=== PATIENT | female | born 1945 | race Caucasian/White ===

== ENCOUNTER → 2016-08-01 | Outpatient (CLI) | payer OTHER ==
[2012-07-02 03:59] VITALS: BP 129/60
== END ==
LOC: RAD 09:31
PROVIDERS: ATTEND Specialist
DX: Z12.31 Encounter for screening mammogram for malignant neoplasm of breast (principal)
CPT/HCPCS: 77067

== ENCOUNTER 2018-03-14 10:43 | Observation (INO) ==
[2018-03-14 12:06] LABS: BILIRUBIN,URINE NEGATIVE (NEGATIVE); BLOOD/HEMOGLOBIN,URINE NEGATIVE (NEGATIVE); GLUCOSE, URINE NEGATIVE (NEGATIVE); KETONES,URINE NEGATIVE (NEGATIVE); LEUKOCYTE ESTERASE ,URINE NEGATIVE (NEGATIVE); NITRITES,URINE NEGATIVE (NEGATIVE); PH,URINE 6.5 (5.0 - 8.0); PROTEIN,URINE NEGATIVE (NEGATIVE); UROBILINOGEN,URINE NORMAL (NORMAL)
[2018-03-14 12:07] LABS: APPEARANCE,URINE CLEAR (CLEAR); COLOR,URINE YELLOW (YELLOW)
[2018-03-14 12:08] LABS: BASOPHILS # (AUTO) 0.1 X10^3/uL (0.0-0.1); BASOPHILS % (AUTO) 0.7 % (0.2-1.0); EOSINOPHILS # (AUTO) 0.2 x10^3/uL (0.0-0.2); EOSINOPHILS % (AUTO) 2.3 % (0.9-2.9); HEMOGLOBIN 14.9 g/dL (12.0-16.0); LYMPHOCYTES # (AUTO) 1.6 X10^3/uL (1.3-2.9); LYMPHOCYTES % (AUTO) 21.8 % (21.0-51.0); MEAN CORPUSCULAR HEMOGLOBIN 29.2 pg (27.0-34.0); MEAN CORPUSCULAR HGB CONC 34.6 g/dL (33.0-35.0); MEAN CORPUSCULAR VOLUME 84.6 fL (80.0-100.0); MEAN PLATELET VOLUME 9.3 fL (7.4-11.0); MONOCYTES # (AUTO) 0.7 x10^3/uL (0.3-0.8); MONOCYTES % (AUTO) 9.1 % (0.0-13.0); NEUTROPHILS # (AUTO) 4.9 x10^3/uL (2.2-4.8); NEUTROPHILS % (AUTO) 66.1 % (42.0-75.0); PLATELET COUNT 196 X10^3/uL (150.0-450.0); RED BLOOD COUNT 5.09 X10^6/uL (3.5-5.4); RED CELL DISTRIBUTION WIDTH 15.2 % (11.6-16.5); WHITE BLOOD COUNT 7.5 X10^3/uL (3.6-10.0)
[2018-03-14 12:19] LABS: ALANINE AMINOTRANSFERASE 29 Units/L (12-78); ALBUMIN 4.1 g/dL (3.4-5.0); ALKALINE PHOSPHATASE 80 Units/L (46-116); ASPARTATE AMINO TRANSFERASE 19 Units/L (15-37); BLOOD UREA NITROGEN 23 mg/dL (7-18); CARBON DIOXIDE 27.5 mmol/L (21-32); CHLORIDE 105 mmol/L (98-107); CREATININE 1.15 mg/dL (0.55-1.02); SODIUM 141 mmol/L (136-145); TOTAL PROTEIN 7.9 g/dL (6.4-8.2); eGFR NON BLACK RACES 49 (>60)
[2018-03-14] MEDS ORDERED: K-DUR TAB 20 MEQ PO PRN (12:21)
[2018-03-14] MEDS ORDERED: K-RIDER 10 MEQ/NS 100 ML 10 MEQ/100 ML BAG IV PRN (12:21)
[2018-03-14] MEDS ORDERED: POTASSIUM CHL 40 MEQ/NS 0.45% 500 ML IV PRN (12:21)
[2018-03-14] MEDS ORDERED: KLOR-CON PO PRN (12:21)
[2018-03-14] MEDS ORDERED: MICRO K EXTEN CAP 10 MEQ PO PRN (12:21)
[2018-03-14] MEDS ORDERED: POTASSIUM CHL 60 MEQ/NS 0.45% 500 ML IV PRN (12:21)
[2018-03-14] MEDS ORDERED: POTASSIUM CHLORIDE LIQ 20 MEQ UDC PO PRN (12:21)
[2018-03-14 12:32] LABS: CKMB % 0.7 % (<4); CREATINE KINASE 135 Units/L (26-192); TROPONIN I < 0.02 ng/mL (0-1.5)
[2018-03-14 12:33] LABS: B-TYPE NATRIURETIC PEPTIDE 8.1 pg/mL (0-79)
[2018-03-14] MEDS ORDERED: NS 250 ML IV 250 ML IV ONE (13:40)
[2018-03-14] MEDS: MAGNESIUM SULFATE 1 GRAM/100 mL PREMIX 1 GM/100 ML BAG IV PRN ×2 (13:52→16:11)
[2018-03-14] MEDS: LOVENOX INJ 30 MG SYR SC SCH (13:52)
[2018-03-14 14:31] VITALS: BMI 28.3
[2018-03-14] MEDS ORDERED: NS 100 ML IV 100 ML IV ONE (15:28)
[2018-03-14] MEDS ORDERED: MORPHINE SULFATE INJ 2 MG INJ IVP PRN (16:04)
[2018-03-14] MEDS ORDERED: MORPHINE SULFATE INJ 2 MG INJ ONE (16:34)
[2018-03-14] MEDS ORDERED: BENADRYL CAP 50 MG PO ONE (16:46)
[2018-03-14] MEDS ORDERED: BENADRYL CAP/TAB 25 MG PO ONE (16:48)
--- NOTE | 2018-03-14 17:13 | RAD ---
Exam: Portable chest History: 73-year-old female with shortness of breath Comparison: Previous chest radiograph from 07/02/2012 Findings: Heart size and pulmonary vasculature are normal. Moderate hyperinflation is present with flattening hemidiaphragms, consistent with COPD. Lungs are clear with no acute infiltrate or significant effusion on either side. Visualized aspect of the bony thorax is unremarkable as well. Impression: COPD. However no acute superimposed abnormality is seen on this exam. Reported By:
[2018-03-14 17:37] LABS: CKMB % 1.1 % (<4); CREATINE KINASE 122 Units/L (26-192); CREATINE KINASE MB 1.3 ng/mL (0-4.0); TROPONIN I < 0.02 ng/mL (0-1.5)
[2018-03-14] MEDS ORDERED: TYLENOL 325 MG TAB PO PRN (17:48)
--- NOTE | 2018-03-14 23:16 | CT ---
CT chest with contrast Indication: Dyspnea Technique: Helical images through the chest after IV contrast. Coronal and sagittal reformats provided. Findings: Limited images through the upper abdomen shows no acute abnormality. Review of bone windows shows no osseous lesion Chest: Aortic arch branch vessels are patent with few calcifications. Heart size is normal. Scattered mediastinal lymph nodes noted. There is no pneumothorax, effusion or consolidation. Impression: No acute chest process. Few vascular calcifications without other abnormality seen Reported By:
[2018-03-15 00:02] LABS: CREATINE KINASE 105 Units/L (26-192); TROPONIN I < 0.02 ng/mL (0-1.5)
[2018-03-15 05:58] LABS: BASOPHILS # (AUTO) 0.1 X10^3/uL (0.0-0.1); BASOPHILS % (AUTO) 0.7 % (0.2-1.0); EOSINOPHILS # (AUTO) 0.2 x10^3/uL (0.0-0.2); EOSINOPHILS % (AUTO) 3.2 % (0.9-2.9); HEMATOCRIT 40.9 % (36.0-47.0); HEMOGLOBIN 14.1 g/dL (12.0-16.0); LYMPHOCYTES # (AUTO) 1.9 X10^3/uL (1.3-2.9); LYMPHOCYTES % (AUTO) 27.3 % (21.0-51.0); MEAN CORPUSCULAR HEMOGLOBIN 29.1 pg (27.0-34.0); MEAN CORPUSCULAR HGB CONC 34.5 g/dL (33.0-35.0); MEAN CORPUSCULAR VOLUME 84.2 fL (80.0-100.0); MEAN PLATELET VOLUME 9.3 fL (7.4-11.0); MONOCYTES # (AUTO) 0.6 x10^3/uL (0.3-0.8); MONOCYTES % (AUTO) 8.7 % (0.0-13.0); NEUTROPHILS # (AUTO) 4.3 x10^3/uL (2.2-4.8); NEUTROPHILS % (AUTO) 60.1 % (42.0-75.0); PLATELET COUNT 191 X10^3/uL (150.0-450.0); RED BLOOD COUNT 4.85 X10^6/uL (3.5-5.4); RED CELL DISTRIBUTION WIDTH 15.6 % (11.6-16.5); WHITE BLOOD COUNT 7.1 X10^3/uL (3.6-10.0)
[2018-03-15] MEDS: LOVENOX INJ 30 MG SYR SC SCH ×2 (05:58→09:14)
[2018-03-15 06:16] LABS: ALANINE AMINOTRANSFERASE 24 Units/L (12-78); ALBUMIN 3.7 g/dL (3.4-5.0); ALKALINE PHOSPHATASE 71 Units/L (46-116); ASPARTATE AMINO TRANSFERASE 18 Units/L (15-37); BLOOD UREA NITROGEN 21 mg/dL (7-18); CALCIUM 8.2 mg/dL (8.5-10.1); CARBON DIOXIDE 25.5 mmol/L (21-32); CHLORIDE 104 mmol/L (98-107); CHOL/HDL RATIO 4.3 (0.0-5.0); CHOLESTEROL 165 mg/dL (0-200); CREATININE 1.21 mg/dL (0.55-1.02); HDL CHOLESTEROL 38 mg/dL (40-60); MAGNESIUM 2.1 mg/dL (1.7-2.9); SODIUM 139 mmol/L (136-145); TOTAL PROTEIN 7.2 g/dL (6.4-8.2); TRIGLYCERIDES 206 mg/dL (0-150); eGFR NON BLACK RACES 47 (>60)
[2018-03-15 08:37] VITALS: BP 112/64
--- NOTE | 2018-03-25 19:46 | DR.CARTERS ---
Short Stay Summary - Admission Date Date of Admission: 03/14/18 - Discharge Date Discharge Date: 03/15/18 - Admission Diagnoses (1) Shortness of breath Status: Acute - Hospital Course Hospital Course: WAS SEEN IN THE OFFICE FOR COMPLAINTS OF SHORTNESS OF BREATH. SHE REPORTED THAT THE SYMPTOMS STARTED THREE DAYS PRIOR TO BEING SEEN AND HAD PROGRESSIVELY GOTTEN WORSE. SHE REPORTS THAT SHORTNESS OF BREATH IS WORSE UPON CARRYING ON CONVERSATIONS, ON EXERTION, OR BY LYING FLAT. SHE WAS ADMITTED FOR FURTHER EVALUATION AND TREATMENT. H&P COMPLETED PRIOR TO ADMISSION. ON ADMISSION, LABS WERE OBTAINED. ABNORMAL LAB VALUES INCLUDED THE FOLLOWING: BUN 23, CREATININE 1.15. CARDIAC ENZYMES WITHIN NORMAL LIMITS. CHEST XRAY REVEALED: COPD, HOWEVER, NO ACUTE SUPERIMPOSED ABNORMALITY SEEN. A CHEST CT WITH CONTRAST WAS OBTAINED AND REVEALED: NO ACUTE CHEST PROCESS. FEW VASCULAR CALCIFICATIONS WITHOUT OTHER ABNORMALITY SEEN. EKG REVEALED SINUS RHYTHM WITH HR 88. AN ECHO WAS OBTAINED AND REVEALED AN EJECTION FRACTION OF 50%, MITRAL VALVE PROLAPSE, E/A REVERSAL. SHE WAS STARTED ON SUPPLEMENTAL OXYGEN. WE PLANNED TO FOLLOW UP WITH SERIAL CARDIAC ENZYMES AND EKGS AND CONTINUE TO MONITOR PATIENT. ON THE MORNING FOLLOWING ADMISSION, PATIENT REPORTS THAT SHORTNESS OF BREATH HAS IMPROVED. SHE DENIES CHEST PAIN. HER VITALS THIS MORNING ARE 97.8-98-20-97%-112/64. LABS WERE OBTAINED. ABNORMAL LAB VALUES INCLUDE THE FOLLOWING: BUN 21, CREATININE 1.21, GLUCOSE 108, CALCIUM 8.2, TRIGLYCERIDES 206, HDL 38. CARDIAC ENZYMES WITHIN NORMAL LIMITS. NO CHANGES NOTED TO EKGS. WE PLANNED FOR DISCHARGE. WE PLAN TO OBTAIN AN OUTPATIENT CARDIOLITE STRESS TEST. WE INSTRUCTED HER TO CONTINUE HER CURRENT MEDICATIONS AND TO FOLLOW UP WITH ME IN THE OFFICE ON 03/22/2018. SHE VERBALIZED UNDERSTANDING AND WAS DISCHARGED HOME WITH SPOUSE IN STABLE CONDITION. - Discharge Medications Discharge Medications: Home Medication List aspirin [Ecotrin] 325 mg PO DAILY 03/14/18 [History] estradiol [Vagifem] 10 mcg VAGINAL 2XW 03/14/18 [History] Prescriptions: - Discharge Plan Disposition: HOME, SELF-CARE Condition: Stable - Follow up/Referrals Follow up/Referrals: LIV LAGOS [Primary Care Provider] - 1 WEEK (pt does note see ) Familia Morley [STAFF PHYSICIAN] - 03/22/18 2:00 pm - Instructions Instructions: Shortness of Breath, Adult, [id number], Nonspecific Chest Pain, [id number] Additional Instructions: DIET TOLERATED. ACTIVITY TOLERATED. Forms: Patient Portal
== END 2018-03-15 11:14 | disposition home or self-care (01) ==
LOC: MED/SURG
PROVIDERS: ADMIT Internal Medicine; ATTEND Internal Medicine
DX: R06.02 Shortness of breath; I10 Essential (primary) hypertension; R07.89 Other chest pain; I20.8 Other forms of angina pectoris; R94.31 Abnormal electrocardiogram [ECG] [EKG]; D51.9 Vitamin B12 deficiency anemia, unspecified; Z79.01 Long term (current) use of anticoagulants; J44.9 Chronic obstructive pulmonary disease, unspecified; E78.2 Mixed hyperlipidemia; E55.9 Vitamin D deficiency, unspecified
CPT/HCPCS: 36415; 71010; 71045; 71260; 80053; 80061; 81003; 82550; 82553; 83735; 83880; 84484; 85025; 85378; 85610; 85730; 93005; 93306; 94760; 96367; 96372; A4222; G0378; J1650; J2270; J3475; J7050

== ENCOUNTER 2018-10-24 10:47 | Observation (INO) ==
[2018-10-24] MEDS ORDERED: ZOFRAN INJ 4 MG VIAL IVP PRN (12:17)
[2018-10-24 12:41] LABS: BASOPHILS # (AUTO) 0.2 X10^3/uL (0.0-0.1); BASOPHILS % (AUTO) 2.7 % (0.2-1.0); EOSINOPHILS # (AUTO) 0.1 x10^3/uL (0.0-0.2); LYMPHOCYTES # (AUTO) 0.9 X10^3/uL (1.3-2.9); LYMPHOCYTES % (AUTO) 14.9 % (21.0-51.0); MEAN CORPUSCULAR HEMOGLOBIN 29.9 pg (27.0-34.0); MEAN CORPUSCULAR HGB CONC 34.9 g/dL (33.0-35.0); MEAN CORPUSCULAR VOLUME 85.5 fL (80.0-100.0); MEAN PLATELET VOLUME 8.7 fL (7.4-11.0); MONOCYTES # (AUTO) 0.4 x10^3/uL (0.3-0.8); MONOCYTES % (AUTO) 7.1 % (0.0-13.0); NEUTROPHILS # (AUTO) 4.4 x10^3/uL (2.2-4.8); NEUTROPHILS % (AUTO) 73.3 % (42.0-75.0); PLATELET COUNT 149 X10^3/uL (150.0-450.0); RED BLOOD COUNT 4.69 X10^6/uL (3.5-5.4); RED CELL DISTRIBUTION WIDTH 14.6 % (11.6-16.5)
[2018-10-24 12:51] LABS: ALANINE AMINOTRANSFERASE 30 Units/L (12-78); ALKALINE PHOSPHATASE 83 Units/L (46-116); ASPARTATE AMINO TRANSFERASE 26 Units/L (15-37); BLOOD UREA NITROGEN 17 mg/dL (7-18); CALCIUM 8.9 mg/dL (8.5-10.1); CARBON DIOXIDE 26.5 mmol/L (21-32); CHLORIDE 107 mmol/L (98-107); CREATININE 1.27 mg/dL (0.55-1.02); SODIUM 144 mmol/L (136-145); TOTAL PROTEIN 7.2 g/dL (6.4-8.2); eGFR NON BLACK RACES 44 (>60)
[2018-10-24] MEDS: NS 1000 ML 1,000 ML with MVI INJ (ADULT) 1 ML IV SCH ×2 (13:57)
[2018-10-24] MEDS: FLAGYL IV PREMIX 500 MG BAG 500 MG/100 ML BAG IV SCH ×3 (13:58→22:00)
[2018-10-24] MEDS ORDERED: NS 100 ML IV 100 ML ONE (14:41)
--- NOTE | 2018-10-24 15:22 | CT ---
HISTORY: Left-sided back pain for 4 days Study: CT abdomen and pelvis with contrast Comparison: None Technique: Multiple axial images of the abdomen and pelvis were obtained with IV contrast. Oral contrast was administered. Dose reduction techniques including Automated Exposure Control (AEC) and adjustment of mA and kV were utilized. Findings: The visualized portions of the lung bases are clear. The liver, spleen, pancreas, and adrenal glands are unremarkable. Gallbladder is removed. No renal calculi or obstructive uropathy. No free intraperitoneal air. No evidence of intestinal obstruction or inflammation. Appendix is removed. No free fluid or abscess identified. Oral contrast reaches the rectum. There are a few scattered sigmoid diverticula present without acute inflammation. The soft tissues and osseous structures are unremarkable. The vascular structures are within normal limits for age. No pathologically enlarged lymph nodes are identified. Uterus is removed. Urinary bladder is not well distended but otherwise unremarkable. IMPRESSION: 1. No acute abnormality identified. 2. Postsurgical changes as described. 3. Sigmoid diverticulosis without acute inflammation. Reported By:
[2018-10-24 15:54] VITALS: BMI 26.7
[2018-10-24 16:49] LABS: BILIRUBIN,URINE NEGATIVE (NEGATIVE); BLOOD/HEMOGLOBIN,URINE NEGATIVE (NEGATIVE); GLUCOSE, URINE NEGATIVE (NEGATIVE); KETONES,URINE 1+ (NEGATIVE); LEUKOCYTE ESTERASE ,URINE NEGATIVE (NEGATIVE); NITRITES,URINE NEGATIVE (NEGATIVE); PROTEIN,URINE NEGATIVE (NEGATIVE); UROBILINOGEN,URINE NORMAL (NORMAL)
[2018-10-24 16:50] LABS: APPEARANCE,URINE CLEAR (CLEAR); COLOR,URINE PALE YELLOW (YELLOW)
[2018-10-24 17:05] LABS: STOOL FOR WBC NEGATIVE (NEGATIVE)
[2018-10-24 17:22] LABS: CRYPTOSPORIDIUM PARVUM ANTIGEN NEGATIVE (NEGATIVE); GIARDIA LAMBLIA ANTIGEN NEGATIVE (NEGATIVE)
[2018-10-24] MEDS ORDERED: TYLENOL 325 MG TAB PO PRN (20:32)
[2018-10-24] MEDS ORDERED: RESTORIL CAP 15 MG PO PRN (20:32)
[2018-10-24] MEDS ORDERED: K-DUR TAB 20 MEQ PO ONE (21:00)
[2018-10-25] MEDS: NS 1000 ML 1,000 ML with MVI INJ (ADULT) 1 ML IV SCH ×4 (00:15→09:32)
[2018-10-25] MEDS: FLAGYL IV PREMIX 500 MG BAG 500 MG/100 ML BAG IV SCH ×2 (02:30→09:26)
[2018-10-25 05:32] LABS: BASOPHILS % (AUTO) 0.7 % (0.2-1.0); EOSINOPHILS # (AUTO) 0.2 x10^3/uL (0.0-0.2); HEMATOCRIT 38.1 % (36.0-47.0); HEMOGLOBIN 13.3 g/dL (12.0-16.0); LYMPHOCYTES # (AUTO) 0.9 X10^3/uL (1.3-2.9); LYMPHOCYTES % (AUTO) 13.9 % (21.0-51.0); MEAN CORPUSCULAR HEMOGLOBIN 29.8 pg (27.0-34.0); MEAN CORPUSCULAR HGB CONC 34.9 g/dL (33.0-35.0); MEAN CORPUSCULAR VOLUME 85.5 fL (80.0-100.0); MEAN PLATELET VOLUME 9.3 fL (7.4-11.0); MONOCYTES # (AUTO) 0.6 x10^3/uL (0.3-0.8); MONOCYTES % (AUTO) 9.5 % (0.0-13.0); NEUTROPHILS # (AUTO) 4.8 x10^3/uL (2.2-4.8); NEUTROPHILS % (AUTO) 72.9 % (42.0-75.0); PLATELET COUNT 148 X10^3/uL (150.0-450.0); RED BLOOD COUNT 4.46 X10^6/uL (3.5-5.4); RED CELL DISTRIBUTION WIDTH 14.4 % (11.6-16.5); WHITE BLOOD COUNT 6.6 X10^3/uL (3.6-10.0)
[2018-10-25 05:47] LABS: ALANINE AMINOTRANSFERASE 25 Units/L (12-78); ALBUMIN 3.4 g/dL (3.4-5.0); ALKALINE PHOSPHATASE 72 Units/L (46-116); ASPARTATE AMINO TRANSFERASE 24 Units/L (15-37); BLOOD UREA NITROGEN 10 mg/dL (7-18); CALCIUM 8.2 mg/dL (8.5-10.1); CARBON DIOXIDE 24.8 mmol/L (21-32); CHLORIDE 110 mmol/L (98-107); CREATININE 1.11 mg/dL (0.55-1.02); MAGNESIUM 1.7 mg/dL (1.7-2.9); SODIUM 146 mmol/L (136-145); TOTAL PROTEIN 6.3 g/dL (6.4-8.2); eGFR NON BLACK RACES 52 (>60)
[2018-10-25] MEDS ORDERED: PHARMACY CONSULT - DOSE _____ XX SCH (09:00)
--- NOTE | 2018-10-25 09:22 | DR.UPDATE ---
H&P Update History and Physical Update: History and Physical reviewed and patient examined. Changes noted: Yes with the following: WAS SEEN IN THE OFFICE TODAY FOR COMPLAINTS OF ABDOMINAL PAIN. SHE WAS SEEN ON 10/22, WHERE SHE REPORTED RUQ PAIN. TODAY, SHE COMLAINS OF LLQ PAIN. SHE ALSO COMPLAINS OF DIARHHEA AND SEVERE WEAKNESS. SHE REPORTS A HISTORY OF DIVERTICULOSIS/DIVERTICULITIS. WE ADMITTED PATIENT FOR FURTHER EVALUATION AND TREATMENT OF ABDOMINAL PAIN, DIARRHEA, AND WEAKNESS. ON ADMISSION, WE WILL OBTAIN LABS AND AN ABDOMEN/PELVIS CT WITH CONTRAST. WE WILL START NORMAL SALINE AT 80ML/HR WITH MRI, ZOFRAN, AND FLAGYL 500MG IV Q6H. OTHERWISE, WE PLAN TO FOLLOW UP WITH AM LABS AND CONTINUE TO MONITOR. Prescription drug monitoring program results: PDMP reviewed and no concerns identified
[2018-10-25 16:34] VITALS: BP 149/75
== END 2018-10-25 11:50 | disposition home or self-care (01) ==
LOC: MED/SURG
PROVIDERS: ADMIT Internal Medicine; ATTEND Internal Medicine
DX: R10.11 Right upper quadrant pain; K52.9 Noninfective gastroenteritis and colitis, unspecified; R10.32 Left lower quadrant pain; K21.0 Gastro-esophageal reflux disease with esophagitis; R19.7 Diarrhea, unspecified; K57.30 Diverticulosis of large intestine without perforation or abscess without bleeding; I10 Essential (primary) hypertension
CPT/HCPCS: 36415; 74177; 80053; 81003; 82270; 83630; 83735; 85025; 87045; 87328; 87329; 87338; 87427; 87449; 87493; 87899; A4216; A4222; S0030; G0378; J7030; J7050

== ENCOUNTER 2018-11-09 13:32 | Inpatient (IN) ==
[2018-11-09 16:20] LABS: BASOPHILS # (AUTO) 0.1 X10^3/uL (0.0-0.1); BASOPHILS % (AUTO) 0.7 % (0.2-1.0); EOSINOPHILS % (AUTO) 0.4 % (0.9-2.9); HEMATOCRIT 36.9 % (36.0-47.0); HEMOGLOBIN 12.7 g/dL (12.0-16.0); LYMPHOCYTES # (AUTO) 1.1 X10^3/uL (1.3-2.9); LYMPHOCYTES % (AUTO) 11.8 % (21.0-51.0); MEAN CORPUSCULAR HEMOGLOBIN 28.9 pg (27.0-34.0); MEAN CORPUSCULAR HGB CONC 34.3 g/dL (33.0-35.0); MEAN CORPUSCULAR VOLUME 84.1 fL (80.0-100.0); MONOCYTES # (AUTO) 0.9 x10^3/uL (0.3-0.8); NEUTROPHILS # (AUTO) 7.5 x10^3/uL (2.2-4.8); NEUTROPHILS % (AUTO) 78.1 % (42.0-75.0); PLATELET COUNT 262 X10^3/uL (150.0-450.0); RED BLOOD COUNT 4.39 X10^6/uL (3.5-5.4); RED CELL DISTRIBUTION WIDTH 14.2 % (11.6-16.5); WHITE BLOOD COUNT 9.6 X10^3/uL (3.6-10.0)
[2018-11-09 16:33] LABS: ALANINE AMINOTRANSFERASE 24 Units/L (12-78); ALBUMIN 3.1 g/dL (3.4-5.0); ALKALINE PHOSPHATASE 76 Units/L (46-116); ASPARTATE AMINO TRANSFERASE 14 Units/L (15-37); BLOOD UREA NITROGEN 18 mg/dL (7-18); CALCIUM 8.6 mg/dL (8.5-10.1); CARBON DIOXIDE 24.1 mmol/L (21-32); CHLORIDE 106 mmol/L (98-107); COR CA(FOR HYPOALB) 9.3 mg/dL (8.5-10.1); CREATININE 1.11 mg/dL (0.55-1.02); SODIUM 140 mmol/L (136-145); TOTAL PROTEIN 7.2 g/dL (6.4-8.2); eGFR NON BLACK RACES 52 (>60)
[2018-11-09 16:37] LABS: APPEARANCE,URINE CLEAR (CLEAR); BILIRUBIN,URINE NEGATIVE (NEGATIVE); BLOOD/HEMOGLOBIN,URINE NEGATIVE (NEGATIVE); COLOR,URINE YELLOW (YELLOW); GLUCOSE, URINE NEGATIVE (NEGATIVE); KETONES,URINE NEGATIVE (NEGATIVE); LEUKOCYTE ESTERASE ,URINE NEGATIVE (NEGATIVE); NITRITES,URINE NEGATIVE (NEGATIVE); PROTEIN,URINE NEGATIVE (NEGATIVE); UROBILINOGEN,URINE NORMAL (NORMAL)
[2018-11-09] MEDS ORDERED: NS 1000 ML 1,000 ML ONE (16:50)
[2018-11-09] MEDS: NS 1000 ML 1,000 ML IV SCH (17:55)
[2018-11-09 18:48] VITALS: BMI 27.1
[2018-11-09] MEDS ORDERED: TORADOL 15 MG VIAL IVP PRN (19:20)
[2018-11-09] MEDS: CRESTOR TAB 10 MG PO SCH (20:30)
[2018-11-09] MEDS: TORADOL 15 MG VIAL IVP PRN (20:30)
[2018-11-09] MEDS: LOPRESSOR TAB 50 MG PO SCH (20:30)
[2018-11-09] MEDS: TRUSOPT PLUS (OPHTH) EACHEYE SCH (20:32)
[2018-11-10] MEDS: NS 1000 ML 1,000 ML IV SCH ×4 (00:33→17:29)
[2018-11-10] MEDS: TORADOL 15 MG VIAL IVP PRN (00:33)
[2018-11-10 06:14] LABS: BASOPHILS % (AUTO) 0.5 % (0.2-1.0); EOSINOPHILS # (AUTO) 0.1 x10^3/uL (0.0-0.2); EOSINOPHILS % (AUTO) 0.6 % (0.9-2.9); HEMATOCRIT 36.1 % (36.0-47.0); HEMOGLOBIN 12.4 g/dL (12.0-16.0); LYMPHOCYTES # (AUTO) 1.3 X10^3/uL (1.3-2.9); LYMPHOCYTES % (AUTO) 15.7 % (21.0-51.0); MEAN CORPUSCULAR HEMOGLOBIN 29.1 pg (27.0-34.0); MEAN CORPUSCULAR HGB CONC 34.5 g/dL (33.0-35.0); MEAN CORPUSCULAR VOLUME 84.4 fL (80.0-100.0); MEAN PLATELET VOLUME 8.1 fL (7.4-11.0); MONOCYTES # (AUTO) 0.5 x10^3/uL (0.3-0.8); MONOCYTES % (AUTO) 6.7 % (0.0-13.0); NEUTROPHILS # (AUTO) 6.3 x10^3/uL (2.2-4.8); NEUTROPHILS % (AUTO) 76.5 % (42.0-75.0); PLATELET COUNT 244 X10^3/uL (150.0-450.0); RED BLOOD COUNT 4.27 X10^6/uL (3.5-5.4); RED CELL DISTRIBUTION WIDTH 14.1 % (11.6-16.5); WHITE BLOOD COUNT 8.2 X10^3/uL (3.6-10.0)
[2018-11-10 06:20] LABS: ALANINE AMINOTRANSFERASE 22 Units/L (12-78); ALBUMIN 2.9 g/dL (3.4-5.0); ALKALINE PHOSPHATASE 73 Units/L (46-116); ASPARTATE AMINO TRANSFERASE 13 Units/L (15-37); BLOOD UREA NITROGEN 15 mg/dL (7-18); CALCIUM 8.4 mg/dL (8.5-10.1); CARBON DIOXIDE 23.5 mmol/L (21-32); CHLORIDE 108 mmol/L (98-107); COR CA(FOR HYPOALB) 9.3 mg/dL (8.5-10.1); CREATININE 1.01 mg/dL (0.55-1.02); SODIUM 141 mmol/L (136-145); eGFR NON BLACK RACES 57 (>60)
[2018-11-10] MEDS ORDERED: POTASSIUM CHL 60 MEQ/NS 0.45% 500 ML IV PRN (06:31)
[2018-11-10] MEDS ORDERED: MICRO K EXTEN CAP 10 MEQ PO PRN (06:31)
[2018-11-10] MEDS ORDERED: POTASSIUM CHLORIDE LIQ 20 MEQ UDC PO PRN (06:31)
[2018-11-10] MEDS ORDERED: K-RIDER 10 MEQ/NS 100 ML 10 MEQ/100 ML BAG IV PRN (06:31)
[2018-11-10] MEDS ORDERED: POTASSIUM CHL 40 MEQ/NS 0.45% 500 ML IV PRN (06:31)
[2018-11-10] MEDS ORDERED: K-DUR TAB 20 MEQ PO PRN (06:31)
[2018-11-10] MEDS ORDERED: MAGNESIUM SULFATE 1 GRAM/100 mL PREMIX 1 GM/100 ML BAG IV PRN (06:31)
[2018-11-10] MEDS ORDERED: KLOR-CON PO PRN (06:31)
[2018-11-10] MEDS: LOPRESSOR TAB 50 MG PO SCH ×2 (10:10→20:38)
[2018-11-10] MEDS: TRUSOPT PLUS (OPHTH) EACHEYE SCH ×2 (10:16→20:41)
[2018-11-10] MEDS: COLCRYS TAB 0.6 MG PO SCH ×2 (11:01→20:38)
[2018-11-10] MEDS: ULORIC PO SCH (11:01)
[2018-11-10] MEDS: TORADOL 15 MG VIAL IVP SCH ×3 (11:04→22:14)
[2018-11-10 11:34] LABS: STOOL FOR WBC NEGATIVE (NEGATIVE)
[2018-11-10 12:14] LABS: CRYPTOSPORIDIUM PARVUM ANTIGEN NEGATIVE (NEGATIVE); GIARDIA LAMBLIA ANTIGEN NEGATIVE (NEGATIVE)
--- NOTE | 2018-11-10 13:10 | VAS ---
HISTORY: 73-year-old female with left knee pain. Study: Venous Doppler left lower extremity. Comparison: None. TECHNIQUE: Multiple tolbert scale and color flow Doppler images of the deep venous system were obtained of the left lower extremity. FINDINGS: The deep venous system of the left lower extremity was evaluated from the level of the common femoral vein through the popliteal vein. Normal color flow and augmentation can be observed. In addition, normal compression is seen throughout the deep venous system. Robles cyst. IMPRESSION: 1. Negative for DVT. 2. Robles's cyst. Reported By:
[2018-11-10] MEDS: SYNTHROID 25 mcg TAB PO SCH (17:09)
[2018-11-10] MEDS: CRESTOR TAB 10 MG PO SCH (20:38)
[2018-11-10] MEDS: RESTORIL CAP 15 MG PO PRN (20:39)
[2018-11-11] MEDS: NS 1000 ML 1,000 ML IV SCH ×4 (02:56→17:16)
[2018-11-11] MEDS: TORADOL 15 MG VIAL IVP SCH ×3 (05:23→21:26)
[2018-11-11 06:01] LABS: BASOPHILS % (AUTO) 0.5 % (0.2-1.0); EOSINOPHILS # (AUTO) 0.1 x10^3/uL (0.0-0.2); EOSINOPHILS % (AUTO) 0.9 % (0.9-2.9); HEMATOCRIT 38.8 % (36.0-47.0); HEMOGLOBIN 13.3 g/dL (12.0-16.0); LYMPHOCYTES # (AUTO) 1.3 X10^3/uL (1.3-2.9); LYMPHOCYTES % (AUTO) 13.3 % (21.0-51.0); MEAN CORPUSCULAR HEMOGLOBIN 29.6 pg (27.0-34.0); MEAN CORPUSCULAR HGB CONC 34.4 g/dL (33.0-35.0); MEAN CORPUSCULAR VOLUME 85.9 fL (80.0-100.0); MEAN PLATELET VOLUME 8.9 fL (7.4-11.0); MONOCYTES # (AUTO) 0.6 x10^3/uL (0.3-0.8); MONOCYTES % (AUTO) 6.1 % (0.0-13.0); NEUTROPHILS # (AUTO) 7.6 x10^3/uL (2.2-4.8); NEUTROPHILS % (AUTO) 79.2 % (42.0-75.0); PLATELET COUNT 241 X10^3/uL (150.0-450.0); RED BLOOD COUNT 4.51 X10^6/uL (3.5-5.4); RED CELL DISTRIBUTION WIDTH 14.2 % (11.6-16.5); WHITE BLOOD COUNT 9.5 X10^3/uL (3.6-10.0)
[2018-11-11 06:25] LABS: ALANINE AMINOTRANSFERASE 22 Units/L (12-78); ALKALINE PHOSPHATASE 73 Units/L (46-116); ASPARTATE AMINO TRANSFERASE 19 Units/L (15-37); BLOOD UREA NITROGEN 14 mg/dL (7-18); CALCIUM 8.6 mg/dL (8.5-10.1); CARBON DIOXIDE 20.8 mmol/L (21-32); CHLORIDE 110 mmol/L (98-107); COR CA(FOR HYPOALB) 9.4 mg/dL (8.5-10.1); CREATININE 0.93 mg/dL (0.55-1.02); SODIUM 143 mmol/L (136-145); TOTAL PROTEIN 7.2 g/dL (6.4-8.2); eGFR NON BLACK RACES > 60 (>60)
[2018-11-11] MEDS: LOPRESSOR TAB 50 MG PO SCH ×2 (08:33→21:26)
[2018-11-11] MEDS: COLCRYS TAB 0.6 MG PO SCH ×2 (08:33→21:26)
[2018-11-11] MEDS: ULORIC PO SCH (08:34)
[2018-11-11] MEDS: TRUSOPT PLUS (OPHTH) EACHEYE SCH ×2 (08:35→21:27)
[2018-11-11] MEDS ORDERED: NORCO 5/325 MG TAB PO PRN (15:40)
[2018-11-11] MEDS: SYNTHROID 25 mcg TAB PO SCH (16:15)
[2018-11-11] MEDS: CRESTOR TAB 10 MG PO SCH (21:26)
[2018-11-11] MEDS: RESTORIL CAP 15 MG PO PRN (21:30)
--- NOTE | 2018-11-11 21:51 | PCM.PROG ---
Progress Note - Progress Note for Day of Date of Exam: 11/10/18 - Subjective Subjective: WAS ADMITTED FOR SEVERE DIARRHEA, DEHYDRATION, AND WEAKNESS. TODAY, SHE IS ALERT AND ORIENTED, SITTING UP IN BED ON MORNING ROUNDS. SHE REPORTS SEVERE PAIN TO THE LEFT KNEE TODAY. WE HAVE BEEN TREATING HER IN THE OFFICE FOR A GOUT FLARE UP. SHE ALSO CONTINUES WITH DIARRHEA AND GENERALIZED WEAKNESS. ON EXAMINATION, HEART IS REGULAR IN RATE AND RHYTHM. BILATERAL LUNGS ARE NOTED WITH DIMINISHED LUNG SOUNDS THROUGHOUT. ABDOMEN IS FLAT, SOFT, AND NON-TENDER WITH HYPERACTIVE BOWEL SOUNDS NOTED. LEFT KNEE IS NOTED WITH EDEMA. HER VITALS THIS MORNING ARE: 98.1-80-20-97%-177/81. LABS WERE OBTAINED. ABNORMAL LAB VALUES INCLUDE THE FOLLOWING: CHLORIDE 108, CALCIUM 8.4, URIC ACID 4.9, AST 13, CRP 82.0, ALBUMIN 2.9. STOOL STUDIES WERE OBTAINED THIS MORNING AND ARE PENDING. SHE IS CURRENTLY RECEIVING NORMAL SALINE AT 125ML/HR. TODAY, WE WILL STRT ULORIC 40MG PO DAILY AND COLCRYS 0.6MG PO BID. WE WILL OBTAIN A LLE VENOUS DOPPLER TODAY. OTHERWISE, WE PLAN TO FOLLOW UP WITH AM LABS AND CONTINUE TO MONITOR. - Past Medical Family Social History Past Med/Fam/Surg Hx: No changes since H&P Allergies: Allergies cefuroxime [From Ceftin] Allergy (Verified 11/09/18 16:10) levofloxacin [From Levaquin] Allergy (Verified 03/14/18 12:11) ofloxacin [From Floxin] Allergy (Verified 03/14/18 12:11) Penicillins Allergy (Verified 03/14/18 12:11) - Review of Systems ROS: No change since H&P - Vital Signs and I&O's Vital Signs: Temperature 98.6 F Pulse Rate [Right Brachial] 88 Respiratory Rate 20 Blood Pressure [Left Arm] 165/76 Blood Pressure [Right Arm] 167/77 Blood Pressure 132/63 O2 Sat by Pulse Oximetry 96 Intake and Output: Intake & Output 11/09/18 11/10/18 11/11/18 11/12/18 11:59 11:59 11:59 11:59 Intake Total 2100 / 2100 4275 / 4275 1964 Output Total 600 / 600 Balance 1500 / 1500 4275 / 4275 1964 - Physical Exam Oriented: Normal Eyes: Normal Ear: Normal Nose: Normal Throat: Normal Respiratory: Generalized, Diminished Cardiovascular: Normal. negative: S3, S4, Murmur : Normal Auscultation: Bowel Sounds: Increased Palpation: Normal Tenderness: Diffuse, Mild. negative: Rebound, Guarding, Rigidity Skin: Decreased Turgur Musculoskeletal: Left, Knee, Swelling, Tender Psychiatric: Normal Mood Description: Calm Affect: Normal Speech Pattern: Clear, Appropriate - Laboratory and Diagnostics Result Diagrams: 11/11/18 05:11 11/11/18 05:11 Labs: 11/10/18 09:30 Stool Stool Culture - Preliminary 11/10/18 09:30 Stool - Final Laboratory WBC 9.5 X10^3/uL (3.6-10.0) 11/11/18 05:11 RBC 4.51 X10^6/uL (3.5-5.4) 11/11/18 05:11 Hgb 13.3 g/dL (12.0-16.0) 11/11/18 05:11 Hct 38.8 % (36.0-47.0) 11/11/18 05:11 MCV 85.9 fL (80.0-100.0) 11/11/18 05:11 MCH 29.6 pg (27.0-34.0) 11/11/18 05:11 MCHC 34.4 g/dL (33.0-35.0) 11/11/18 05:11 RDW 14.2 % (11.6-16.5) 11/11/18 05:11 Plt Count 241 X10^3/uL (150.0-450.0) 11/11/18 05:11 MPV 8.9 fL (7.4-11.0) 11/11/18 05:11 Neut % (Auto) 79.2 % (42.0-75.0) H 11/11/18 05:11 Lymph % (Auto) 13.3 % (21.0-51.0) L 11/11/18 05:11 Wilson % (Auto) 6.1 % (0.0-13.0) 11/11/18 05:11 Eos % (Auto) 0.9 % (0.9-2.9) 11/11/18 05:11 Baso % (Auto) 0.5 % (0.2-1.0) 11/11/18 05:11 Neut # (Auto) 7.6 x10^3/uL (2.2-4.8) H 11/11/18 05:11 Lymph # (Auto) 1.3 X10^3/uL (1.3-2.9) 11/11/18 05:11 [place] # (Auto) 0.6 x10^3/uL (0.3-0.8) 11/11/18 05:11 Eos # (Auto) 0.1 x10^3/uL (0.0-0.2) 11/11/18 05:11 Baso # (Auto) 0.0 X10^3/uL (0.0-0.1) 11/11/18 05:11 Absolute Nucleated RBC 0.1 /100WBC 11/11/18 05:11 ESR 36 MM/HOUR (0-20) H 11/09/18 16:07 Sodium 143 mmol/L (136-145) 11/11/18 05:11 Corrected Sodium TNP 11/11/18 05:11 Potassium 4.0 mmol/L (3.5-5.1) 11/11/18 05:11 Chloride 110 mmol/L (98-107) H 11/11/18 05:11 Carbon Dioxide 20.8 mmol/L (21-32) L 11/11/18 05:11 BUN 14 mg/dL (7-18) 11/11/18 05:11 Creatinine 0.93 mg/dL (0.55-1.02) 11/11/18 05:11 Est GFR (MDRD) Af Amer > 60 (>60) 11/11/18 05:11 Est GFR (MDRD) Non-Af > 60 (>60) 11/11/18 05:11 Glucose 100 mg/dL (65-99) H 11/11/18 05:11 Uric Acid 4.9 mg/dL (2.6-6.0) 11/10/18 05:26 Calcium 8.6 mg/dL (8.5-10.1) 11/11/18 05:11 Corrected Calcium 9.4 mg/dL (8.5-10.1) 11/11/18 05:11 Magnesium 2.0 mg/dL (1.7-2.9) 11/10/18 05:26 Total Bilirubin 0.40 mg/dL (0.2-1.0) 11/11/18 05:11 AST 19 Units/L (15-37) 11/11/18 05:11 ALT 22 Units/L (12-78) 11/11/18 05:11 Alkaline Phosphatase 73 Units/L (46-116) 11/11/18 05:11 C-Reactive Protein 61.20 mg/L (0-3.0) H 11/11/18 05:11 Total Protein 7.2 g/dL (6.4-8.2) 11/11/18 05:11 Albumin 3.0 g/dL (3.4-5.0) L 11/11/18 05:11 Globulin 4.2 g/dL (2.5-4.5) 11/11/18 05:11 Albumin/Globulin Ratio 0.7 Ratio (1.1-2.1) L 11/11/18 05:11 Specimen Type Clean catch urine 11/09/18 16:00 Urine Color Yellow (YELLOW) 11/09/18 16:00 Urine Appearance Clear (CLEAR) 11/09/18 16:00 Urine pH 7.0 (5.0 - 8.0) 11/09/18 16:00 Ur Specific [place] 1.010 (1.000-1.030) 11/09/18 16:00 Urine Protein Negative (NEGATIVE) 11/09/18 16:00 Urine Glucose (UA) Negative (NEGATIVE) 11/09/18 16:00 Urine Ketones Negative (NEGATIVE) 11/09/18 16:00 Urine Occult Blood Negative (NEGATIVE) 11/09/18 16:00 Urine Nitrite Negative (NEGATIVE) 11/09/18 16:00 Urine Bilirubin Negative (NEGATIVE) 11/09/18 16:00 Urine Urobilinogen Normal (NORMAL) 11/09/18 16:00 Ur Leukocyte Esterase Negative (NEGATIVE) 11/09/18 16:00 Stool Description 85g,unformed,brown 11/10/18 09:30 Stl Occult Blood (IFOB) Negative (NEGATIVE) 11/10/18 09:30 Stool for White Cells Negative (NEGATIVE) 11/10/18 09:30 Stl C. diff Tox B Gene Negative (NEGATIVE) 11/10/18 09:30 Stl C. diff [id number] Negative (NEGATIVE) 11/10/18 09:30 Stool H. pylori Ag Negative (NEGATIVE) 11/10/18 09:30 Cryptosporid parvum Ag Negative (NEGATIVE) 11/10/18 09:30 Giardia lamblia Ag Negative (NEGATIVE) 11/10/18 09:30 - Plan (1) Diarrhea Status: Acute Qualifiers: Diarrhea type: unspecified type Qualified Code(s): R19.7 - Diarrhea, unspecified Plan: IV FLUIDS, STOOL STUDIES, CONTINUE TO MONITOR (2) Dehydration Status: Acute Plan: NORMAL SALINE AT 125ML/HR, CONTINUE TO MONITOR (3) Generalized weakness Status: Acute (4) Gout attack Status: Acute Qualifiers: Gout site: multiple sites Gout etiology: unspecified cause Qualified Code(s): M10.9 - Gout, unspecified Plan: TORADOL IV, ULORIC 40MG PO DAILY, COLCRYS 0.6MG PO BID, CONTINUE TO MONITOR
[2018-11-12] MEDS: NS 1000 ML 1,000 ML IV SCH ×3 (02:31→19:14)
[2018-11-12] MEDS: TORADOL 15 MG VIAL IVP SCH ×3 (05:28→21:41)
[2018-11-12 05:50] LABS: BASOPHILS % (AUTO) 0.5 % (0.2-1.0); EOSINOPHILS # (AUTO) 0.1 x10^3/uL (0.0-0.2); EOSINOPHILS % (AUTO) 0.7 % (0.9-2.9); HEMATOCRIT 38.2 % (36.0-47.0); HEMOGLOBIN 13.1 g/dL (12.0-16.0); LYMPHOCYTES # (AUTO) 1.4 X10^3/uL (1.3-2.9); LYMPHOCYTES % (AUTO) 13.3 % (21.0-51.0); MEAN CORPUSCULAR HEMOGLOBIN 29.4 pg (27.0-34.0); MEAN CORPUSCULAR HGB CONC 34.3 g/dL (33.0-35.0); MEAN CORPUSCULAR VOLUME 85.7 fL (80.0-100.0); MEAN PLATELET VOLUME 8.4 fL (7.4-11.0); MONOCYTES # (AUTO) 0.7 x10^3/uL (0.3-0.8); MONOCYTES % (AUTO) 6.5 % (0.0-13.0); NEUTROPHILS # (AUTO) 8.3 x10^3/uL (2.2-4.8); PLATELET COUNT 235 X10^3/uL (150.0-450.0); RED BLOOD COUNT 4.45 X10^6/uL (3.5-5.4); RED CELL DISTRIBUTION WIDTH 14.3 % (11.6-16.5); WHITE BLOOD COUNT 10.5 X10^3/uL (3.6-10.0)
[2018-11-12 06:03] LABS: ALANINE AMINOTRANSFERASE 25 Units/L (12-78); ALBUMIN 3.1 g/dL (3.4-5.0); ALKALINE PHOSPHATASE 78 Units/L (46-116); ASPARTATE AMINO TRANSFERASE 14 Units/L (15-37); BLOOD UREA NITROGEN 14 mg/dL (7-18); CALCIUM 8.8 mg/dL (8.5-10.1); CARBON DIOXIDE 23.4 mmol/L (21-32); CHLORIDE 109 mmol/L (98-107); COR CA(FOR HYPOALB) 9.5 mg/dL (8.5-10.1); CREATININE 0.99 mg/dL (0.55-1.02); SODIUM 143 mmol/L (136-145); TOTAL PROTEIN 7.4 g/dL (6.4-8.2); eGFR NON BLACK RACES 59 (>60)
[2018-11-12] MEDS: COLCRYS TAB 0.6 MG PO SCH ×2 (08:59→21:40)
[2018-11-12] MEDS: ULORIC PO SCH (08:59)
[2018-11-12] MEDS: LOPRESSOR TAB 50 MG PO SCH ×2 (08:59→21:41)
[2018-11-12] MEDS: TRUSOPT PLUS (OPHTH) EACHEYE SCH ×2 (09:07→21:41)
[2018-11-12] MEDS ORDERED: PROTONIX INJ 40 MG VIAL IVP SCH (10:00)
[2018-11-12] MEDS: PROTONIX TAB 40 MG PO SCH ×2 (11:00→21:40)
[2018-11-12] MEDS: SOLU-Medrol 40 MG VIAL IVP SCH ×3 (11:00→21:40)
[2018-11-12] MEDS ORDERED: PHARMACY CONSULT - DOSE _____ XX SCH (13:00)
[2018-11-12] MEDS: SYNTHROID 25 mcg TAB PO SCH (16:29)
--- NOTE | 2018-11-12 21:13 | PCM.PROG ---
Progress Note - Progress Note for Day of Date of Exam: 11/11/18 - Subjective Subjective: WAS ADMITTED FOR SEVERE DIARRHEA, DEHYDRATION, AND WEAKNESS. TODAY, SHE IS ALERT AND ORIENTED, SITTING UP IN BED ON MORNING ROUNDS. SHE REPORTS IMPROVEMENT IN PAIN, BUT CONTINUES WITH DIARRHEA TODAY AND GENERALIZED WEAKNESS. ON EXAMINATION, HEART IS REGULAR IN RATE AND RHYTHM. BILAT ERAL LUNGS ARE NOTED WITH DIMINISHED LUNG SOUNDS THROUGHOUT. ABDOMEN IS FLAT, SOFT, AND NON-TENDER WITH HYPERACTIVE BOWEL SOUNDS NOTED. LEFT KNEE CONTINUES WITH EDEMA. HER VITALS THIS MORNING ARE: 98.1-83-20-96%-149/77. LABS WERE OBTAINED. ABNORMAL LAB VALUES INCLUDE THE FOLLOWING: CHLORIDE 110, CARBON DIOXIDE 20.8, GLUCOSE 100, ALBUMIN 3.0, CRP 61.20. STOOL STUDIES ARE NEGATIVE. WE OBTAINED A VENOUS DOPPLER YESTERDAY. IT IS NEGATIVE. SHE IS CURRENTLY RECEIVING NORMAL SALINE AT 125ML/HR, ULORIC 40MG PO DAILY, COLCRYS 0.6MG PO BID, AND TORADOL 15MG IV Q8H. WE WILL CONTINUE WITH CURRENT PLAN OF CARE TODAY. OTHERWISE, WE PLAN TO FOLLOW UP WITH AM LABS AND CONTINUE TO MONITOR. - Past Medical Family Social History Past Med/Fam/Surg Hx: No changes since H&P Allergies: Allergies cefuroxime [From Ceftin] Allergy (Verified 11/09/18 16:10) levofloxacin [From Levaquin] Allergy (Verified 03/14/18 12:11) ofloxacin [From Floxin] Allergy (Verified 03/14/18 12:11) Penicillins Allergy (Verified 03/14/18 12:11) - Review of Systems ROS: No change since H&P - Vital Signs and I&O's Vital Signs: Temperature 97.7 F Pulse Rate [Right Brachial] 79 Respiratory Rate 20 Blood Pressure [Left Arm] 144/73 Blood Pressure [Right Arm] 167/77 Blood Pressure 132/63 O2 Sat by Pulse Oximetry 97 Intake and Output: Intake & Output 11/10/18 11/11/18 11/12/18 11/13/18 11:59 11:59 11:59 11:59 Intake Total 2100 / 2100 4275 / 4275 4035 / 4035 1944 Output Total 600 / 600 Balance 1500 / 1500 4275 / 4275 4035 / 4035 1944 - Physical Exam Oriented: Normal Eyes: Normal Ear: Normal Nose: Normal Throat: Normal Respiratory: Generalized, Diminished Cardiovascular: Normal. negative: S3, S4, Murmur : Normal Auscultation: Bowel Sounds: Increased Palpation: Normal Tenderness: Diffuse, Mild. negative: Rebound, Guarding, Rigidity Skin: Decreased Turgur Musculoskeletal: Left, Knee, Swelling, Tender Psychiatric: Normal Mood Description: Calm Affect: Normal Speech Pattern: Clear, Appropriate - Laboratory and Diagnostics Result Diagrams: 11/12/18 05:10 11/12/18 05:10 Labs: 11/10/18 09:30 Stool Stool Culture - Final 11/10/18 09:30 Stool - Final Laboratory WBC 10.5 X10^3/uL (3.6-10.0) H 11/12/18 05:10 RBC 4.45 X10^6/uL (3.5-5.4) 11/12/18 05:10 Hgb 13.1 g/dL (12.0-16.0) 11/12/18 05:10 Hct 38.2 % (36.0-47.0) 11/12/18 05:10 MCV 85.7 fL (80.0-100.0) 11/12/18 05:10 MCH 29.4 pg (27.0-34.0) 11/12/18 05:10 MCHC 34.3 g/dL (33.0-35.0) 11/12/18 05:10 RDW 14.3 % (11.6-16.5) 11/12/18 05:10 Plt Count 235 X10^3/uL (150.0-450.0) 11/12/18 05:10 MPV 8.4 fL (7.4-11.0) 11/12/18 05:10 Neut % (Auto) 79.0 % (42.0-75.0) H 11/12/18 05:10 Lymph % (Auto) 13.3 % (21.0-51.0) L 11/12/18 05:10 [place] % (Auto) 6.5 % (0.0-13.0) 11/12/18 05:10 Eos % (Auto) 0.7 % (0.9-2.9) L 11/12/18 05:10 Baso % (Auto) 0.5 % (0.2-1.0) 11/12/18 05:10 Neut # (Auto) 8.3 x10^3/uL (2.2-4.8) H 11/12/18 05:10 Lymph # (Auto) 1.4 X10^3/uL (1.3-2.9) 11/12/18 05:10 Daniels # (Auto) 0.7 x10^3/uL (0.3-0.8) 11/12/18 05:10 Eos # (Auto) 0.1 x10^3/uL (0.0-0.2) 11/12/18 05:10 Baso # (Auto) 0.0 X10^3/uL (0.0-0.1) 11/12/18 05:10 Absolute Nucleated RBC 0.1 /100WBC 11/12/18 05:10 ESR 36 MM/HOUR (0-20) H 11/09/18 16:07 Sodium 143 mmol/L (136-145) 11/12/18 05:10 Corrected Sodium TNP 11/12/18 05:10 Potassium 4.1 mmol/L (3.5-5.1) 11/12/18 05:10 Chloride 109 mmol/L (98-107) H 11/12/18 05:10 Carbon Dioxide 23.4 mmol/L (21-32) 11/12/18 05:10 BUN 14 mg/dL (7-18) 11/12/18 05:10 Creatinine 0.99 mg/dL (0.55-1.02) 11/12/18 05:10 Est GFR (MDRD) Af Amer > 60 (>60) 11/12/18 05:10 Est GFR (MDRD) Non-Af 59 (>60) 11/12/18 05:10 Glucose 103 mg/dL (65-99) H 11/12/18 05:10 Uric Acid 4.9 mg/dL (2.6-6.0) 11/10/18 05:26 Calcium 8.8 mg/dL (8.5-10.1) 11/12/18 05:10 Corrected Calcium 9.5 mg/dL (8.5-10.1) 11/12/18 05:10 Magnesium 2.0 mg/dL (1.7-2.9) 11/10/18 05:26 Total Bilirubin 0.40 mg/dL (0.2-1.0) 11/12/18 05:10 AST 14 Units/L (15-37) L 11/12/18 05:10 ALT 25 Units/L (12-78) 11/12/18 05:10 Alkaline Phosphatase 78 Units/L (46-116) 11/12/18 05:10 C-Reactive Protein 61.20 mg/L (0-3.0) H 11/11/18 05:11 Total Protein 7.4 g/dL (6.4-8.2) 11/12/18 05:10 Albumin 3.1 g/dL (3.4-5.0) L 11/12/18 05:10 Globulin 4.3 g/dL (2.5-4.5) 11/12/18 05:10 Albumin/Globulin Ratio 0.7 Ratio (1.1-2.1) L 11/12/18 05:10 Specimen Type Clean catch urine 11/09/18 16:00 Urine Color Yellow (YELLOW) 11/09/18 16:00 Urine Appearance Clear (CLEAR) 11/09/18 16:00 Urine pH 7.0 (5.0 - 8.0) 11/09/18 16:00 Ur Specific [place] 1.010 (1.000-1.030) 11/09/18 16:00 Urine Protein Negative (NEGATIVE) 11/09/18 16:00 Urine Glucose (UA) Negative (NEGATIVE) 11/09/18 16:00 Urine Ketones Negative (NEGATIVE) 11/09/18 16:00 Urine Occult Blood Negative (NEGATIVE) 11/09/18 16:00 Urine Nitrite Negative (NEGATIVE) 11/09/18 16:00 Urine Bilirubin Negative (NEGATIVE) 11/09/18 16:00 Urine Urobilinogen Normal (NORMAL) 11/09/18 16:00 Ur Leukocyte Esterase Negative (NEGATIVE) 11/09/18 16:00 Stool Description 85g,unformed,brown 11/10/18 09:30 Stl Occult Blood (IFOB) Negative (NEGATIVE) 11/10/18 09:30 Stool for White Cells Negative (NEGATIVE) 11/10/18 09:30 Stl C. diff Tox B Gene Negative (NEGATIVE) 11/10/18 09:30 Stl C. diff [id number] Negative (NEGATIVE) 11/10/18 09:30 Stool H. pylori Ag Negative (NEGATIVE) 11/10/18 09:30 Cryptosporid parvum Ag Negative (NEGATIVE) 11/10/18 09:30 Giardia lamblia Ag Negative (NEGATIVE) 11/10/18 09:30 - Plan (1) Diarrhea Status: Acute Qualifiers: Diarrhea type: unspecified type Qualified Code(s): R19.7 - Diarrhea, unspecified Plan: IV FLUIDS, STOOL STUDIES, CONTINUE TO MONITOR (2) Dehydration Status: Acute Plan: NORMAL SALINE AT 125ML/HR, CONTINUE TO MONITOR (3) Generalized weakness Status: Acute (4) Gout attack Status: Acute Qualifiers: Gout site: multiple sites Gout etiology: unspecified cause Qualified Code(s): M10.9 - Gout, unspecified Plan: TORADOL IV, ULORIC 40MG PO DAILY, COLCRYS 0.6MG PO BID, CONTINUE TO MONITOR
[2018-11-12] MEDS: RESTORIL CAP 15 MG PO PRN (21:40)
[2018-11-12] MEDS: CRESTOR TAB 10 MG PO SCH (21:40)
[2018-11-13] MEDS: NS 1000 ML 1,000 ML IV SCH ×6 (00:11→22:00)
[2018-11-13] MEDS: SOLU-Medrol 40 MG VIAL IVP SCH ×3 (06:17→22:04)
[2018-11-13] MEDS: TORADOL 15 MG VIAL IVP SCH ×3 (06:17→22:04)
[2018-11-13 06:23] LABS: BASOPHILS % (AUTO) 0.2 % (0.2-1.0); EOSINOPHILS % (AUTO) 0.1 % (0.9-2.9); HEMATOCRIT 39.2 % (36.0-47.0); HEMOGLOBIN 13.4 g/dL (12.0-16.0); LYMPHOCYTES # (AUTO) 0.8 X10^3/uL (1.3-2.9); LYMPHOCYTES % (AUTO) 5.8 % (21.0-51.0); MEAN CORPUSCULAR HEMOGLOBIN 28.5 pg (27.0-34.0); MEAN CORPUSCULAR HGB CONC 34.1 g/dL (33.0-35.0); MEAN CORPUSCULAR VOLUME 83.6 fL (80.0-100.0); MEAN PLATELET VOLUME 8.5 fL (7.4-11.0); MONOCYTES # (AUTO) 0.1 x10^3/uL (0.3-0.8); MONOCYTES % (AUTO) 1.1 % (0.0-13.0); NEUTROPHILS # (AUTO) 12.4 x10^3/uL (2.2-4.8); NEUTROPHILS % (AUTO) 92.8 % (42.0-75.0); PLATELET COUNT 273 X10^3/uL (150.0-450.0); RED BLOOD COUNT 4.68 X10^6/uL (3.5-5.4); RED CELL DISTRIBUTION WIDTH 14.3 % (11.6-16.5); WHITE BLOOD COUNT 13.4 X10^3/uL (3.6-10.0)
[2018-11-13 06:29] LABS: ALANINE AMINOTRANSFERASE 23 Units/L (12-78); ALBUMIN 3.2 g/dL (3.4-5.0); ALKALINE PHOSPHATASE 78 Units/L (46-116); ASPARTATE AMINO TRANSFERASE 14 Units/L (15-37); BLOOD UREA NITROGEN 17 mg/dL (7-18); CARBON DIOXIDE 21.3 mmol/L (21-32); CHLORIDE 108 mmol/L (98-107); COR CA(FOR HYPOALB) 9.6 mg/dL (8.5-10.1); COR NA(FOR HYPERGLY) 145 mmol/L (136-145); CREATININE 0.88 mg/dL (0.55-1.02); SODIUM 144 mmol/L (136-145); TOTAL PROTEIN 7.6 g/dL (6.4-8.2); eGFR NON BLACK RACES > 60 (>60)
[2018-11-13 06:38] LABS: PLATELET MORPHOLOGY COMMENT NORMAL (NORMAL)
[2018-11-13] MEDS: TRUSOPT PLUS (OPHTH) EACHEYE SCH ×2 (08:27→22:03)
[2018-11-13] MEDS: PROTONIX TAB 40 MG PO SCH ×2 (08:27→22:03)
[2018-11-13] MEDS: COLCRYS TAB 0.6 MG PO SCH ×2 (08:27→22:03)
[2018-11-13] MEDS: LOPRESSOR TAB 50 MG PO SCH ×2 (08:27→22:03)
[2018-11-13] MEDS: ULORIC PO SCH (08:28)
--- NOTE | 2018-11-13 08:35 | DR.UPDATE ---
H&P Update History and Physical Update: History and Physical reviewed and patient examined. Changes noted: Yes with the following: WAS SEEN IN THE OFFICE TODAY FOR COMPLAINTS OF PAIN IN MULTIPLE AREAS. SHE ALSO COMPLAINS OF DIARRHEA, DECREASED APPETITE, AND WEAKNESS. ON EXAMINATION, THERE IS SWELLING AND LIMITED ROM TO THE LEFT LOWER EXTREMITY. SHE WAS ADMITTED TO THE HOSPITAL FOR SEVERE DIARRHEA, DEHYDRATION, WEAKNESS, AND A FLARE UP OF GOUT. ON ADMISSION, WE PLAN TO OBTAIN STOOL STUDIES AND LABS. WE WILL START ULORIC 40MG PO DAILY, COLCRYS 0.6MG PO BID, AND TORADOL 15MG IV PRN. OTHERWISE, WE PLAN TO FOLLOW UP WITH AM LABS AND CONTINUE TO MONITOR. Prescription drug monitoring program results: PDMP reviewed and no concerns identified
[2018-11-13] MEDS: SYNTHROID 25 mcg TAB PO SCH (16:00)
--- NOTE | 2018-11-13 18:14 | PCM.PROG ---
Progress Note - Progress Note for Day of Date of Exam: 11/12/18 - Subjective Subjective: WAS ADMITTED FOR SEVERE DIARRHEA, DEHYDRATION, AND WEAKNESS. TODAY, SHE IS ALERT AND ORIENTED, SITTING UP IN BED ON MORNING ROUNDS. SHE CONTINUES WITH PAIN IN MULTIPLE SITES TODAY, BUT REPORTS IMPROVEMENT IN DIARRHEA. ON EXAMINATION, HEART IS REGULAR IN RATE AND RHYTHM. BILATERAL LUNGS ARE NOTED WITH DIMINISHED LUNG SOUNDS THROUGHOUT. ABDOMEN IS FLAT, SOFT, AND NON-TENDER WITH HYPERACTIVE BOWEL SOUNDS NOTED. LEFT KNEE CONTINUES WITH EDEMA. HER VITALS THIS MORNING ARE: 98.3-86-18-99%-146/67. LABS WERE OBTAINED. ABNORMAL LAB VALUES INCLUDE THE FOLLOWING: WBC 10.5, CHLORIDE 109, GLUCOSE 103, AST 14, ALUBMIN 3.1. STOOL STUDIES ARE NEGATIVE. SHE IS CURRENTLY RECEIVING NORMAL SALI NE AT 125ML/HR, ULORIC 40MG PO DAILY, COLCRYS 0.6MG PO BID, AND TORADOL 15MG IV Q8H. TODAY, WE WILL START SOLU-MEDROL 40MG IV TID, NORCO 5/325MG PO QID, AND PROTONIX IV. OTHERWISE, WE WILL CONTINUE WITH CURRENT PLAN OF CARE TODAY. WE PLAN TO FOLLOW UP WITH AM LABS AND CONTINUE TO MONITOR. - Past Medical Family Social History Past Med/Fam/Surg Hx: No changes since H&P Allergies: Allergies cefuroxime [From Ceftin] Allergy (Verified 11/09/18 16:10) levofloxacin [From Levaquin] Allergy (Verified 03/14/18 12:11) ofloxacin [From Floxin] Allergy (Verified 03/14/18 12:11) Penicillins Allergy (Verified 03/14/18 12:11) - Review of Systems ROS: No change since H&P - Vital Signs and I&O's Vital Signs: Temperature 97.9 F Pulse Rate [Right Brachial] 85 Respiratory Rate 22 Blood Pressure [Left Arm] 155/82 Blood Pressure [Right Arm] 167/77 Blood Pressure 132/63 O2 Sat by Pulse Oximetry 98 Intake and Output: Intake & Output 11/11/18 11/12/18 11/13/18 11/14/18 11:59 11:59 11:59 11:59 Intake Total 4275 / 4275 4035 / 4035 4400 / 4400 2044 / 2044 Balance 4275 / 4275 4035 / 4035 4400 / 4400 204 / 2044 - Physical Exam Oriented: Normal Eyes: Normal Ear: Normal Nose: Normal Throat: Normal Respiratory: Generalized, Diminished Cardiovascular: Normal. negative: S3, S4, Murmur : Normal Auscultation: Bowel Sounds: Increased Palpation: Normal Tenderness: Diffuse, Mild. negative: Rebound, Guarding, Rigidity Skin: Decreased Turgur Musculoskeletal: Left, Knee, Swelling, Tender Psychiatric: Normal Mood Description: Calm Affect: Normal Speech Pattern: Clear, Appropriate - Laboratory and Diagnostics Result Diagrams: 11/13/18 05:23 11/13/18 05:23 Labs: 11/10/18 09:30 Stool Stool Culture - Final 11/10/18 09:30 Stool - Final Laboratory WBC 13.4 X10^3/uL (3.6-10.0) H 11/13/18 05:23 RBC 4.68 X10^6/uL (3.5-5.4) 11/13/18 05:23 Hgb 13.4 g/dL (12.0-16.0) 11/13/18 05:23 Hct 39.2 % (36.0-47.0) 11/13/18 05:23 MCV 83.6 fL (80.0-100.0) 11/13/18 05:23 MCH 28.5 pg (27.0-34.0) 11/13/18 05:23 MCHC 34.1 g/dL (33.0-35.0) 11/13/18 05:23 RDW 14.3 % (11.6-16.5) 11/13/18 05:23 Plt Count 273 X10^3/uL (150.0-450.0) 11/13/18 05:23 Plt Count Comment Adequate (ADEQUATE) 11/13/18 05:23 MPV 8.5 fL (7.4-11.0) 11/13/18 05:23 Neut % (Auto) 92.8 % (42.0-75.0) H 11/13/18 05:23 Lymph % (Auto) 5.8 % (21.0-51.0) L 11/13/18 05:23 [place] % (Auto) 1.1 % (0.0-13.0) 11/13/18 05:23 Eos % (Auto) 0.1 % (0.9-2.9) L 11/13/18 05:23 Baso % (Auto) 0.2 % (0.2-1.0) 11/13/18 05:23 Neut # (Auto) 12.4 x10^3/uL (2.2-4.8) H 11/13/18 05:23 Lymph # (Auto) 0.8 X10^3/uL (1.3-2.9) L 11/13/18 05:23 [place] # (Auto) 0.1 x10^3/uL (0.3-0.8) L 11/13/18 05:23 Eos # (Auto) 0.0 x10^3/uL (0.0-0.2) 11/13/18 05:23 Baso # (Auto) 0.0 X10^3/uL (0.0-0.1) 11/13/18 05:23 Absolute Nucleated RBC 0.0 /100WBC 11/13/18 05:23 Total Counted 100 11/13/18 05:23 Neutrophils % (Manual) 90 % (39-76) H 11/13/18 05:23 Lymphocytes % (Manual) 7 % (13-43) L 11/13/18 05:23 Monocytes % (Manual) 3 % (4-9) L 11/13/18 05:23 Plt Morphology Comment Normal (NORMAL) 11/13/18 05:23 RBC Morphology Normal (NORMAL) 11/13/18 05:23 ESR 36 MM/HOUR (0-20) H 11/09/18 16:07 Sodium 144 mmol/L (136-145) 11/13/18 05:23 Corrected Sodium 145 mmol/L (136-145) 11/13/18 05:23 Potassium 3.5 mmol/L (3.5-5.1) 11/13/18 05:23 Chloride 108 mmol/L (98-107) H 11/13/18 05:23 Carbon Dioxide 21.3 mmol/L (21-32) 11/13/18 05:23 BUN 17 mg/dL (7-18) 11/13/18 05:23 Creatinine 0.88 mg/dL (0.55-1.02) 11/13/18 05:23 Est GFR (MDRD) Af Amer > 60 (>60) 11/13/18 05:23 Est GFR (MDRD) Non-Af > 60 (>60) 11/13/18 05:23 Glucose 153 mg/dL (65-99) H 11/13/18 05:23 Uric Acid 4.9 mg/dL (2.6-6.0) 11/10/18 05:26 Calcium 9.0 mg/dL (8.5-10.1) 11/13/18 05:23 Corrected Calcium 9.6 mg/dL (8.5-10.1) 11/13/18 05:23 Magnesium 2.0 mg/dL (1.7-2.9) 11/10/18 05:26 Total Bilirubin 0.20 mg/dL (0.2-1.0) 11/13/18 05:23 AST 14 Units/L (15-37) L 11/13/18 05:23 ALT 23 Units/L (12-78) 11/13/18 05:23 Alkaline Phosphatase 78 Units/L (46-116) 11/13/18 05:23 C-Reactive Protein 60.60 mg/L (0-3.0) H 11/13/18 05:23 Total Protein 7.6 g/dL (6.4-8.2) 11/13/18 05:23 Albumin 3.2 g/dL (3.4-5.0) L 11/13/18 05:23 Globulin 4.4 g/dL (2.5-4.5) 11/13/18 05:23 Albumin/Globulin Ratio 0.7 Ratio (1.1-2.1) L 11/13/18 05:23 Specimen Type Clean catch urine 11/09/18 16:00 Urine Color Yellow (YELLOW) 11/09/18 16:00 Urine Appearance Clear (CLEAR) 11/09/18 16:00 Urine pH 7.0 (5.0 - 8.0) 11/09/18 16:00 Ur Specific [place] 1.010 (1.000-1.030) 11/09/18 16:00 Urine Protein Negative (NEGATIVE) 11/09/18 16:00 Urine Glucose (UA) Negative (NEGATIVE) 11/09/18 16:00 Urine Ketones Negative (NEGATIVE) 11/09/18 16:00 Urine Occult Blood Negative (NEGATIVE) 11/09/18 16:00 Urine Nitrite Negative (NEGATIVE) 11/09/18 16:00 Urine Bilirubin Negative (NEGATIVE) 11/09/18 16:00 Urine Urobilinogen Normal (NORMAL) 11/09/18 16:00 Ur Leukocyte Esterase Negative (NEGATIVE) 11/09/18 16:00 Stool Description 85g,unformed,brown 11/10/18 09:30 Stl Occult Blood (IFOB) Negative (NEGATIVE) 11/10/18 09:30 Stool for White Cells Negative (NEGATIVE) 11/10/18 09:30 Stl C. diff Tox B Gene Negative (NEGATIVE) 11/10/18 09:30 Stl C. diff [id number] Negative (NEGATIVE) 11/10/18 09:30 Stool H. pylori Ag Negative (NEGATIVE) 11/10/18 09:30 Cryptosporid parvum Ag Negative (NEGATIVE) 11/10/18 09:30 Giardia lamblia Ag Negative (NEGATIVE) 11/10/18 09:30 - Plan (1) Diarrhea Status: Acute Qualifiers: Diarrhea type: unspecified type Qualified Code(s): R19.7 - Diarrhea, unspecified Plan: IV FLUIDS, STOOL STUDIES, CONTINUE TO MONITOR (2) Dehydration Status: Acute Plan: NORMAL SALINE AT 125ML/HR, CONTINUE TO MONITOR (3) Generalized weakness Status: Acute (4) Gout attack Status: Inactive Qualifiers: Gout site: multiple sites Gout etiology: unspecified cause Qualified Code(s): M10.9 - Gout, unspecified Plan: TORADOL IV, ULORIC 40MG PO DAILY, COLCRYS 0.6MG PO BID, SOLU-MEDROL 40MG IV TID, NORCO CONTINUE TO MONITOR
[2018-11-13] MEDS: CRESTOR TAB 10 MG PO SCH (22:02)
[2018-11-13] MEDS: RESTORIL CAP 15 MG PO PRN (22:03)
[2018-11-14] MEDS: NS 1000 ML 1,000 ML IV SCH ×3 (01:12→08:46)
[2018-11-14] MEDS: TORADOL 15 MG VIAL IVP SCH (05:55)
[2018-11-14] MEDS: SOLU-Medrol 40 MG VIAL IVP SCH (05:56)
[2018-11-14 05:59] LABS: BASOPHILS % (AUTO) 0.1 % (0.2-1.0); HEMATOCRIT 35.2 % (36.0-47.0); LYMPHOCYTES # (AUTO) 0.9 X10^3/uL (1.3-2.9); MEAN CORPUSCULAR HEMOGLOBIN 28.7 pg (27.0-34.0); MEAN CORPUSCULAR HGB CONC 34.2 g/dL (33.0-35.0); MEAN CORPUSCULAR VOLUME 84.2 fL (80.0-100.0); MEAN PLATELET VOLUME 8.4 fL (7.4-11.0); MONOCYTES # (AUTO) 0.4 x10^3/uL (0.3-0.8); NEUTROPHILS # (AUTO) 16.5 x10^3/uL (2.2-4.8); NEUTROPHILS % (AUTO) 92.9 % (42.0-75.0); PLATELET COUNT 282 X10^3/uL (150.0-450.0); RED BLOOD COUNT 4.18 X10^6/uL (3.5-5.4); RED CELL DISTRIBUTION WIDTH 14.5 % (11.6-16.5); WHITE BLOOD COUNT 17.7 X10^3/uL (3.6-10.0)
[2018-11-14 06:26] LABS: ALANINE AMINOTRANSFERASE 24 Units/L (12-78); ALBUMIN 2.7 g/dL (3.4-5.0); ALKALINE PHOSPHATASE 63 Units/L (46-116); ASPARTATE AMINO TRANSFERASE 13 Units/L (15-37); BLOOD UREA NITROGEN 22 mg/dL (7-18); CALCIUM 8.4 mg/dL (8.5-10.1); CARBON DIOXIDE 20.9 mmol/L (21-32); CHLORIDE 109 mmol/L (98-107); COR CA(FOR HYPOALB) 9.4 mg/dL (8.5-10.1); COR NA(FOR HYPERGLY) 145 mmol/L (136-145); CREATININE 1.05 mg/dL (0.55-1.02); SODIUM 143 mmol/L (136-145); TOTAL PROTEIN 6.5 g/dL (6.4-8.2); eGFR NON BLACK RACES 55 (>60)
[2018-11-14 06:42] LABS: PLATELET MORPHOLOGY COMMENT NORMAL (NORMAL)
[2018-11-14] MEDS: ULORIC PO SCH (08:44)
[2018-11-14] MEDS: PROTONIX TAB 40 MG PO SCH (08:45)
[2018-11-14] MEDS: LOPRESSOR TAB 50 MG PO SCH (08:45)
[2018-11-14] MEDS: COLCRYS TAB 0.6 MG PO SCH (08:45)
[2018-11-14] MEDS: TRUSOPT PLUS (OPHTH) EACHEYE SCH (09:15)
[2018-11-14 10:39] VITALS: BP 173/76
== END 2018-11-14 10:35 | disposition home or self-care (01) | DRG 392 ==
LOC: MED/SURG 15:36
PROVIDERS: ADMIT Internal Medicine; ATTEND Internal Medicine
DX: R60.0 Localized edema; I10 Essential (primary) hypertension; R25.8 Other abnormal involuntary movements; R79.82 Elevated C-reactive protein (CRP); R19.7 Diarrhea, unspecified; R53.1 Weakness; T50.995A Adverse effect of other drugs, medicaments and biological substances, initial encounter; E86.0 Dehydration; E03.8 Other specified hypothyroidism; M10.9 Gout, unspecified; M71.22 Synovial cyst of popliteal space [Baker], left knee; K21.9 Gastro-esophageal reflux disease without esophagitis; R63.0 Anorexia
CPT/HCPCS: 36415; 80053; 81003; 82270; 83630; 83735; 84550; 85025; 85652; 86140; 87045; 87328; 87329; 87338; 87427; 87449; 87493; 87899; 93971; A4222; J1885; J2920; J7030